=== PATIENT | female | born 1960 | race Caucasian/White ===

== ENCOUNTER → 2017-01-30 | Day surgery (SDC) | payer MEDICARE ==
[~2017-01-30] VITALS: Ht 157.5 cm; Wt 65.0 kg
[~2017-01-30] MED LIST: ACETAMINOPHEN 1000 MG/100 ML 100 ML IV ONE; ACETAMINOPHEN/HYDROcodone 325 MG/5 MG TAB PO PRN; ADDE30TA PO; BUPIVACAINE/EPINEPHRINE 0.5% 50 ML VIAL ONE; CHLORHEXIDINE GLUCONATE 2 % 1 PACK (2 CLOTHS) TOPICAL PRN; HYDROmorphone HCL PF 1 MG/ML VIAL ONE; INSULIN HUMAN REGULAR 1,000 UNITS/10 ML VIAL SQ PRN; KETOROLAC TROMETHAMINE 60 MG/2 ML (IM) VIAL IM PRN; LACTATED RINGER'S 1000 ML IV PRN; LEXA20TA PO; LISI-519 PO; LORA-474 PO; METOPROLOL TARTRATE 25 MG TAB PO PRN; MIDAZOLAM HCL 2 MG/2 ML VIAL ONE; MORPHINE SULFATE 4 MG/ML INJ ONE; ONDANSETRON HCL 4 MG/2 ML VIAL IV PRN; ONDANSETRON HCL 4 MG/2 ML VIAL IV PUSH ONE; POVIDONE IODINE 5% (ANTISEPSIS KIT) 4 APPLICATIONS EACH NARE PRN; PROPOFOL 200 MG/20 ML AMP IV ONE; ROBA750T PO; SODIUM CHLORID 0.9% 500 ML IV PRN; TRIAMCINOLONE ACETONIDE 40 MG/ML VIAL ONE; fentaNYL CITRATE 250 MCG/5 ML AMP ONE
[2017-01-30 12:10] VITALS: PULSE 86
[2017-01-30 12:50] VITALS: BP 122/64; PULSE 81; RESP 16; TEMP 98.6; O2SAT 100
--- NOTE | 2017-01-30 14:08 | MP ---
cc: [facility] DATE OF SURGERY: 01/30/[address] Brett Alford PREOPERATIVE DIAGNOSIS 1. Tear medial meniscus left knee joint. 2. Osteoarthritis left knee joint. 3. Status post old arthroscopic procedure, left knee joint. POSTOPERATIVE DIAGNOSIS 1. Tear medial meniscus left knee joint. 2. Osteoarthritis left knee joint. 3. Status post old arthroscopic procedure, left knee joint. PROCEDURE Arthroscopic synovectomy with chondroplasty of the patella and medial femoral condyle and trimming the medial meniscus. PROCEDURE IN DETAIL The patient was placed on the operating table in the supine position. Adequate general anesthesia was administered by the anesthesiologist. The patient's left knee was prepped and draped in usual sterile fashion. Time-out was called and the patient's name procedure, location were fully confirmed left knee was approached through anteromedial portal as well as lateral portal and a systematic examination of the joint revealed a rather prominent osteochondral lesion of the patella with chondromalacia also noted was a suprapatellar plica with surrounding synovitis. The intercondylar fossa revealed the anterior cruciate ligament frayed but intact. The medial compartment revealed some osteotome arthritis of the medial femoral condyle and a small osteochondral lesion overlying some fraying of the medial meniscus. There also appeared to be suggestion of some absence of the posterior medial corner of the meniscus itself. There did not appear to be any loose bodies throughout the knee joint after thorough exploration. The lateral compartment revealed no lateral meniscus and the condyles were intact. The resector was placed through the anteromedial portal and a trimming of the medial meniscus was carried out accompanied by a chondroplasty of the medial femoral condyle. It was then brought into the suprapatellar pouch and a plica was removed along with the osteochondral lesion which a complete chondroplasty was required utilizing the same instrument. The knee joint was then thoroughly irrigated with lactated Ringer's solution. The instruments were removed and two stab wounds closed with 3-0 nylon. An intra-articular injection of 1 cc or 40 mg of Kenalog along with 0.5% Marcaine with epinephrine. Xeroform gauze was applied over both wounds and a bulky compression dressing applied over this, tourniquet was deflated after 24 minutes. Sponge count, needle count were reported correct x2 and the estimated blood loss was nil. The patient was transferred to the recovery room in stable condition. MD Crys Mckeon /11:44 AM /12:48 PM
== END | disposition home or self-care (01) ==
LOC: PHSDC 09:14
PROVIDERS: ATTEND Orthopaedic Surgery
DX: S83.242A Other tear of medial meniscus, current injury, left knee, initial encounter (principal); M94.262 Chondromalacia, left knee; M17.12 Unilateral primary osteoarthritis, left knee; M65.9 Synovitis and tenosynovitis, unspecified; I10 Essential (primary) hypertension; E78.5 Hyperlipidemia, unspecified
CPT/HCPCS: 01400; 29881; J0131; J1170; J2250; J2270; J2405; J3010; J3301; J7120; E0113

== ENCOUNTER → 2017-08-05 | Outpatient (CLI) | payer MEDICARE ==
[~2017-08-05] MED LIST changes: -ACETAMINOPHEN 1000 MG/100 ML 100 ML IV ONE; -ACETAMINOPHEN/HYDROcodone 325 MG/5 MG TAB PO PRN; -BUPIVACAINE/EPINEPHRINE 0.5% 50 ML VIAL ONE; -CHLORHEXIDINE GLUCONATE 2 % 1 PACK (2 CLOTHS) TOPICAL PRN; +ESCI20TA PO; +ESTR1 PO; +ESTR1TAB PO; +FENT50DI T-DERMAL; +HYDR-3366 PO; +HYDR-3583 PO; -HYDROmorphone HCL PF 1 MG/ML VIAL ONE; -INSULIN HUMAN REGULAR 1,000 UNITS/10 ML VIAL SQ PRN; -KETOROLAC TROMETHAMINE 60 MG/2 ML (IM) VIAL IM PRN; -LACTATED RINGER'S 1000 ML IV PRN; +METH500T3 PO; -METOPROLOL TARTRATE 25 MG TAB PO PRN; -MIDAZOLAM HCL 2 MG/2 ML VIAL ONE; +MORP-44 PO; +MORP1TAB24 PO; -MORPHINE SULFATE 4 MG/ML INJ ONE; +MULT1TAB46 PO; +NEUR300C PO; -ONDANSETRON HCL 4 MG/2 ML VIAL IV PRN; -ONDANSETRON HCL 4 MG/2 ML VIAL IV PUSH ONE; -POVIDONE IODINE 5% (ANTISEPSIS KIT) 4 APPLICATIONS EACH NARE PRN; -PROPOFOL 200 MG/20 ML AMP IV ONE; -SODIUM CHLORID 0.9% 500 ML IV PRN; +THERTAB15 PO; -TRIAMCINOLONE ACETONIDE 40 MG/ML VIAL ONE; +TURM500C7 PO; +VARE1 PO; -fentaNYL CITRATE 250 MCG/5 ML AMP ONE
== END ==
LOC: CPRE 11:36
PROVIDERS: ATTEND Neurological Surgery
DX: Z01.812 Encounter for preprocedural laboratory examination (principal); M43.16 Spondylolisthesis, lumbar region; M51.36 Other intervertebral disc degeneration, lumbar region
CPT/HCPCS: 87640; 87641

== ENCOUNTER 2017-08-11 06:20 | Inpatient (IN) | payer MEDICARE ==
[~2017-08-11] VITALS: Ht 157.5 cm; Wt 63.3 kg
[~2017-08-11 06:20] MED LIST changes: -ESTR1 PO; -HYDR-3366 PO; -HYDR-3583 PO; -LEXA20TA PO; -METH500T3 PO; -MORP1TAB24 PO; -NEUR300C PO; -THERTAB15 PO
[2017-08-11] MEDS ORDERED: VANCOMYCIN HCL 1000 MG VIAL ONE ×2 (06:47→06:48)
[2017-08-11] MEDS ORDERED: THROMBIN (TOPICAL) 5,000 UNIT VIAL ONE (06:47)
[2017-08-11] MEDS ORDERED: BUPIVACAINE/EPINEPHRINE 0.5% PF 30 ML VIAL ONE (06:47)
[2017-08-11] MEDS ORDERED: GELFOAM SIZE 100 ONE (06:47)
[2017-08-11] MEDS ORDERED: LACTATED RINGER'S 1000 ML IV PRN (07:00)
[2017-08-11] MEDS ORDERED: SODIUM CHLORIDE 0.9% 1000 ML IV SCH (07:00)
[2017-08-11] MEDS ORDERED: VANCOMYCIN 1 GM/200 ML PREMIX IV SCH (07:00)
[2017-08-11] MEDS ORDERED: METOPROLOL TARTRATE 25 MG TAB PO PRN (07:00)
[2017-08-11] MEDS ORDERED: POVIDONE IODINE 5% (ANTISEPSIS KIT) 4 APPLICATIONS EACH NARE PRN (07:00)
[2017-08-11] MEDS ORDERED: CHLORHEXIDINE GLUCONATE 2 % 1 PACK (2 CLOTHS) TOPICAL PRN (07:00)
[2017-08-11] MEDS ORDERED: SODIUM CHLORID 0.9% 500 ML IV PRN (07:00)
--- NOTE | 2017-08-11 08:20 | EKG ---
Date Performed: 08/11/2017 Time Performed: 06:57:11 PTAGE: 57 years EKG: Sinus rhythm NORMAL ECG NO PREVIOUS TRACING DOCTOR: Real Freeman Interpretating Date/Time 08/11/2017 08:19:31
[2017-08-11] MEDS ORDERED: ePHEDrine/NS 25 MG/5 ML SYRINGE IV ONE (12:00)
[2017-08-11] MEDS ORDERED: PHENYLEPH/NS 1000 MCG/10 ML SYR IV ONE (12:00)
[2017-08-11] MEDS ORDERED: PROPOFOL 200 MG/20 ML AMP IV ONE (12:00)
[2017-08-11] MEDS ORDERED: ONDANSETRON HCL 4 MG/2 ML VIAL IV ONE (12:00)
[2017-08-11] MEDS ORDERED: NEOSTIGMINE 5 MG/5 ML SYRINGE IV PUSH ONE (12:00)
[2017-08-11] MEDS ORDERED: GLYCOPYRROLATE 1 MG/5 ML SYRINGE IV PUSH ONE (12:00)
[2017-08-11] MEDS ORDERED: NORMOSOL R INJ 1,000 ML IV ONE (12:00)
[2017-08-11] MEDS ORDERED: ROCURONIUM INJ 50 MG/5 ML SYRINGE IV PUSH ONE (12:00)
[2017-08-11] MEDS ORDERED: LIDOCAINE HCL 1% PF 5 ML SYRINGE OTHER ONE (12:00)
[2017-08-11] MEDS ORDERED: ACETAMINOPHEN 1000 MG/100 ML 100 ML IV ONE (12:07)
[2017-08-11] MEDS ORDERED: ACETAMINOPHEN 325 MG TAB PO PRN (13:45)
[2017-08-11] MEDS ORDERED: SENNOSIDES 8.6 MG TAB PO PRN (13:45)
[2017-08-11] MEDS ORDERED: ONDANSETRON HCL 4 MG/2 ML VIAL IV PUSH PRN (13:45)
[2017-08-11] MEDS ORDERED: RESP: ALBUTEROL 2.5 MG/3 ML NEB (PRN) NEB (13:45)
[2017-08-11] MEDS ORDERED: HYDROmorphone HCL PF 2 MG/ML VIAL IV PUSH PRN (13:45)
[2017-08-11] MEDS ORDERED: CALCIUM GLUCONATE INJ 1 GM in SODIUM CHLORIDE 0.9% INJ 100 ML IV PRN (13:45)
[2017-08-11] MEDS ORDERED: SODIUM CHLORIDE 0.9% FLUSH 10 ML FLUSH IV FLUSH PRN (13:45)
[2017-08-11] MEDS ORDERED: MENTHOL LOZENGE BUCCAL PRN (13:45)
[2017-08-11] MEDS ORDERED: BISACODYL 10 MG SUPP RECTAL PRN (13:45)
[2017-08-11] MEDS ORDERED: POTASSIUM CHLOR 20 MEQ PREMIX 100 ML IV PRN (13:45)
[2017-08-11] MEDS ORDERED: ALUMINUM/MAGNESIUM/SIMETH 30 ML CUP PO PRN (13:45)
[2017-08-11] MEDS ORDERED: cloNIDine HCL 0.1 MG TAB PO PRN (13:45)
[2017-08-11] MEDS ORDERED: MAGNESIUM SULFATE INJ 2 GM in SODIUM CHLORIDE 0.9% INJ 100 ML IV PRN (13:45)
[2017-08-11] MEDS ORDERED: PROMETHAZINE INJ 25 MG/ML VIAL IM PRN (13:45)
[2017-08-11] MEDS ORDERED: *HYDROmorphone PF 0.5 MG/0.5 ML PERIprocedure ONLY ONE ×3 (13:48→15:01)
--- NOTE | 2017-08-11 13:50 | PD.OP ---
Operative Report Date of Surgery: Aug 11, 2017 Preoperative Diagnosis: Severe L3-4 and L4-5 degenerative disc disease with disc herniation and facet hypertrophy and associated spinal and foraminal stenosis; intractable low back pain with radiculopathy and neurogenic claudication Postoperative Diagnosis: Same Procedure: Lumbar L3-4 and L4-5 transforaminal interbody fusion; lumbar L3, L4 and L5 decompressive laminectomy with facetectomy and discectomy; L3-5 pedicle screw fixation; L3-4 and L4-5 interbody cage placement; microsurgical technique Anesthesia: General endotracheal by Maria C kellogg Surgeon: Jerardo Honeycutt MD Computer Tester(s): Elva Reilly Operation and Findings: Following initiation of general endotracheal anesthesia, the patient had a Galvan catheter placed along with sequential compression devices. A gram of vancomycin was administered intravenously and he was turned in a prone position on a Pete frame, on a Rafael table, and all pressure points adequately padded. The lumbosacral region was then prepped with Chloraprep and sterilely draped with Ioban along the usual sterile draping. A right paraspinal skin incision was then made extending from the L3-L5 levels after infiltrating the skin with 0.5% Marcaine with epinephrine solution extending down through the fascia. The muscle fibers were split using avascular fatty plane and detached from the underlying facets, transverse process and lateral portion of lamina on the right side and a self-retaining retractor used for exposure. Intraoperative fluoroscopy was also used for level of confirmation along with microscope magnification for further dissection. There was significant facet and ligamentum flavum hypertrophy noted at the L3-4 and L4-5 levels. Right L3-4 and L4-5 facet was resected with a drill bit along with the lamina and there was severe foraminal and lateral recess stenosis from hypertrophied ligamentum flavum and facet which were decompressed bilaterally through the unilateral approach. There was significant disc height collapse along with disc protrusion also leading to the foraminal stenosis at both levels. Epidural hemostasis was achieved with bipolar cautery and Gelfoam with thrombin. Subsequently entered into the disc space at the L3-4 and L4-5 level with a #15 blade and zara were used for discectomy. I then placed PEEK cages packed with local autograft bone and more local autograft bone was packed adjacent to the cages in both interspaces for added interbody fusion. With placement of the cages, I was able to distract the interspaces and opened up the foramen further bilaterally. Subsequently in order to facilitate the fusion and provide stabilization, pedicle screw fixation was undertaken using [place] spine screws on entry point at the right L3, L4, and L5 levels at the junction of the transverse process and facet. Subsequently using AP and lateral fluoroscopy tap and screw placement. The screws were then connected with a rojas and locked in place with caps. The construct appeared very secure at this point. The area was then copiously irrigated with Vancomycin solution and powder. The retractors were removed and the bipolar cautery used for hemostasis. The muscle fascia was then approximated using 2-0 Vicryl interrupted stitches and then 3-0 Vicryl subcuticular stitches also placed in interrupted fashion. The final skin closure was completed with Mastisol and Steri-Strips. A sterile dressing was then applied. The patient then turned in supine position, extubated and taken to recovery room. There were no intraoperative complications. All sponge and needle counts were correct at the end of procedure. Estimated blood loss about 100 ml. Jerardo Honeycutt MD Aug 11, 2017 13:50
[2017-08-11] MEDS: NS + KCL 20 MEQ INJ 1,000 ML IV SCH (14:00)
[2017-08-11] MEDS ORDERED: MIDAZOLAM HCL 2 MG/2 ML VIAL ONE (14:00)
[2017-08-11] MEDS ORDERED: MORPHINE SULFATE 4 MG/ML INJ ONE (14:00)
--- NOTE | 2017-08-11 14:26 | RADRPT ---
EXAM DATE/TIME: 08/11/2017 09:04 [facility] COMPARISON: No previous studies available for comparison. INDICATIONS : Post-op L3-L4 and L4-L5 posterior lumbar fusion. MEDICAL HISTORY : None. SURGICAL HISTORY : None. ENCOUNTER: Initial ACUITY: 1 day PAIN SCORE: Non-responsive. LOCATION: Lumbar spine. FINDINGS: Two view , intraoperative limited view of the lumbosacral junction was performed. There is 3 level ri ght-sided transpedicular fixation from L3-L5 with intervening intervertebral disc prosthesis. Hardwar e all appears to be intact. Minimal grade 1 anterolisthesis of L3 on 4, grade 1 retrolisthesis L4 on 5 and a grade 1 anterolisthesis of L5 on S1. I suspect at least a unilateral pars fracture at the L5 level. CONCLUSION: 1. Unilateral 3 level transpedicular fixation rightward as detailed above. 2. Possible pars fracture at L5 with high grade one anterolisthesis of L5 on S1 Sumeet Mendoza MD on August 11, 2017 at 14:20 Board Certified Radiologist. This report was verified electronically.
--- NOTE | 2017-08-11 14:27 | RADRPT ---
EXAM DATE/TIME: 08/11/2017 09:04 [facility] COMPARISON: No previous studies available for comparison. INDICATIONS : L3-L4 and L4-L5 posterior lumbar fusion. Level localization. MEDICAL HISTORY : None. SURGICAL HISTORY : None. ENCOUNTER: Initial ACUITY: 1 day PAIN SCORE: Non-responsive. LOCATION: Lumbar spine. FINDINGS: Single crosstable fluoroscopic lateral view of the lower lumbar spine demonstrates radiopaque markers projecting at the L4 and L5 level presuming 5 lumbar-type vertebral bodies. There is grade one antra l listhesis of L5 on S1. Vertebral body heights are intact. CONCLUSION: 1. Radiopaque markers at the L4 and L5 level, as above. Ethan Harrison MD on August 11, 2017 at 14:23 Board Certified Radiologist. This report was verified electronically.
[2017-08-11] MEDS ORDERED: DIMETHICONE/OXYBENZONE/PADMIATE LIP BALM 4.25 GM TOPICAL ONE (14:33)
[2017-08-11] MEDS ORDERED: DO NOT ADM ANY ANTICOAGULANT DRUGS PRN (14:45)
[2017-08-11 14:52] LABS: AUTOMATED NEUTROPHIL # 7.1 TH/MM3 (1.8-7.7); BASOPHIL % 0.3 % (0.0-2.0); EOSINOPHIL % 0.5 % (0.0-4.0); HEMATOCRIT 29.9 % (35.0-46.0); HEMOGLOBIN 10.4 GM/DL (11.6-15.3); LYMPH % 16.3 % (9.0-44.0); LYMPHOCYTE # 1.5 TH/MM3 (1.0-4.8); MEAN CELL VOLUME 93.2 FL (80.0-100.0); MEAN CORPUSCULAR HEMOGLOBIN 32.4 PG (27.0-34.0); MEAN CORPUSCULAR HGB CONC 34.7 % (32.0-36.0); MEAN PLATELET VOLUME 7.8 FL (7.0-11.0); MONOCYTE # 0.6 TH/MM3 (0-0.9); NEUT % 76.9 % (16.0-70.0); PLATELET COUNT 244 TH/MM3 (150-450); RED BLOOD COUNT 3.21 MIL/MM3 (4.00-5.30); RED CELL DISTRIBUTION WIDTH 12.5 % (11.6-17.2); WHITE BLOOD COUNT 9.3 TH/MM3 (4.0-11.0)
--- NOTE | 2017-08-11 14:59 | RADRPT ---
EXAM DATE/TIME: 08/11/2017 14:09 [facility] COMPARISON: No previous studies available for comparison. INDICATIONS : Central line placement. MEDICAL HISTORY : Unobtainable. SURGICAL HISTORY : Unobtainable. ENCOUNTER: Initial ACUITY: 1 day PAIN SCORE: 0/10 LOCATION: Bilateral chest FINDINGS: A single view of the chest demonstrates the lungs to be symmetrically aerated without evidence of mas s, infiltrate or effusion. The cardiomediastinal contours are unremarkable. Osseous structures are intact. There is a left subclavian central line. Tip is in the SVC. No pneumothorax. Surgical spinal fusion plate. CONCLUSION: Left subclavian central line in good position without pneumothorax. Clear lungs. Moisés Ojeda Jr., MD on August 11, 2017 at 14:56 Board Certified Radiologist. This report was verified electronically.
[2017-08-11] MEDS ORDERED: fentaNYL 50 MCG/HR PATCH T-DERMAL SCH (15:00)
[2017-08-11 15:24] LABS: BICARBONATE 27.1 MEQ/L (21.0-32.0); CALCIUM 7.7 MG/DL (8.5-10.1); CREATININE 0.73 MG/DL (0.50-1.00)
[2017-08-11] MEDS ORDERED: ceFAZolin INJ 1,000 MG VIAL ONE (15:24)
[2017-08-11 16:00] VITALS: BP 123/58; PULSE 83; RESP 19; TEMP 98.8; O2SAT 99
[2017-08-11] MEDS: HYDROmorphone HCL PF 0.5 MG/0.5 ML SYRINGE IV PRN ×3 (16:41→20:27)
[2017-08-11] MEDS: VARENICLINE 1 MG TAB PO SCH (18:00)
[2017-08-11] MEDS: METHOCARBAMOL 500 MG TAB PO SCH (18:00)
[2017-08-11] MEDS: MORPHINE SULFATE 30 MG CONTROLLED RELEASE TAB PO SCH (18:18)
[2017-08-11 19:45] VITALS: BP 140/61; PULSE 85; RESP 16; TEMP 99.8; O2SAT 97
[2017-08-11] MEDS ORDERED: diphenhydrAMINE HCL 25 MG CAP PO PRN (20:30)
[2017-08-11] MEDS ORDERED: NALOXONE HCL 0.4 MG/ML AMP IV PUSH PRN (20:30)
[2017-08-11] MEDS: LORazepam 1 MG TAB PO PRN (20:33)
[2017-08-11] MEDS: DEXTROAMPHETAMINE/AMPHETAMINE 30 MG TAB PO SCH (21:00)
[2017-08-11] MEDS: SODIUM CHLORIDE 0.9% FLUSH 10 ML FLUSH IV FLUSH SCH (21:00)
[2017-08-11] MEDS: ZOLPIDEM TARTRATE 5 MG TAB PO PRN (21:34)
[2017-08-11] MEDS: DOCUSATE SODIUM 50 MG/SENNA 8.6 MG TAB PO SCH (21:34)
[2017-08-11] MEDS: HYDROmorphone HCL PCA 6 MG/30 ML IV SCH (22:02)
[2017-08-11 22:58] VITALS: PULSE 109
[2017-08-11 23:24] VITALS: PULSE 93
[2017-08-12] VITALS (8 sets, daily range): BP systolic 114–125; BP diastolic 57–66; PULSE 87–107; RESP 16–18; TEMP 98.3–100.1; O2SAT 94–100
[2017-08-12] MEDS: HYDROmorphone HCL PCA 6 MG/30 ML IV SCH ×7 (02:22→23:53)
[2017-08-12] MEDS: MORPHINE SULFATE 30 MG CONTROLLED RELEASE TAB PO SCH ×2 (04:47→17:14)
[2017-08-12] MEDS: PCA - TOTAL MG DILAUDID DELIVERED PER SHIFT OTHER SCH ×3 (04:49→22:09)
[2017-08-12] MEDS: NS + KCL 20 MEQ INJ 1,000 ML IV SCH (07:36)
[2017-08-12] MEDS: LISINOPRIL 5 MG TAB PO SCH (07:38)
[2017-08-12] MEDS: PANTOPRAZOLE SOD 40 MG DELAYED RELEASE TAB PO SCH (07:38)
[2017-08-12] MEDS: DEXTROAMPHETAMINE/AMPHETAMINE 30 MG TAB PO SCH ×2 (07:38→22:08)
[2017-08-12] MEDS: METHOCARBAMOL 500 MG TAB PO SCH ×3 (07:38→17:14)
[2017-08-12] MEDS: SODIUM CHLORIDE 0.9% FLUSH 10 ML FLUSH IV FLUSH SCH ×2 (07:38→22:09)
[2017-08-12] MEDS: ESTRADIOL 1 MG TAB PO SCH (07:39)
[2017-08-12] MEDS: ESCITALOPRAM OXALATE 20 MG TAB PO SCH (07:39)
[2017-08-12] MEDS: MULTIVITAMIN TAB PO SCH (07:39)
[2017-08-12] MEDS: DOCUSATE SODIUM 50 MG/SENNA 8.6 MG TAB PO SCH ×2 (07:39→22:01)
[2017-08-12] MEDS: VARENICLINE 1 MG TAB PO SCH ×2 (07:39→17:14)
[2017-08-12] MEDS ORDERED: TURMERIC ROOT EXTRACT PO SCH (09:00)
--- NOTE | 2017-08-12 09:01 | EKG ---
Date Performed: 08/11/2017 Time Performed: 20:40:23 PTAGE: 57 years EKG: Sinus rhythm NORMAL ECG PREVIOUS TRACING : 08/11/2017 06.57 DOCTOR: Singh Ashby Interpretating Date/Time 08/12/2017 09:00:41
--- NOTE | 2017-08-12 10:28 | HHI.NSPN ---
(Riky Leal) History Chief Complaint: Incisional back pain. (Riky Leal) Interval History 08/12/17: Pt s/p L4/5 and l5/S1 TLIF with cage and pedicle screw fixation. She complains of incisional and back pain but improved since sitting up in chair. She was able to ambulate short distance today to RN station. She state her leg was sore but no radiculopathy in LEs. (Riky Leal) Review of Systems General: Negative for: fever, chills, insomnia Respiratory: Negative for: shortness of breath, cough, sputum Cardiovascular: Negative for: chest pain Gastrointestinal: Negative for: nausea, vomitting, diarrhea, constipation ( Riky Lela) Exam Results Vital Signs Date Time Temp Pulse Resp B/P (MAP) Pulse Ox O2 Delivery O2 Flow Rate FiO2 08/12/17 09:17 16 08/12/17 07:52 99.7 96 122/58 (79) 97 08/11/17 15:00 Nasal Cannula 3 Intake and Output 08/12/17 08/12/17 08/13/17 08:00 16:00 00:00 Intake Total 720 ml Output Total 1800 ml Balance -1080 ml (Riky Leal) Physical Examination General: Pt awake and alert. Sitting up in chair in NAD. Resp: CTA bilaterally Heart: NSR no murmurs Abd: Soft positive bs Skin: No cyanosis or erythema Muscle: Moves LEs with good strength some limitation secondary to pain. Neuro: Pt awake and alert. Sitting up in chair. Follows commands well. Speech clear and appropriate. Sensation grossly intact. (Riky Leal) Lab, Micro, Other Results Laboratory Tests Test 08/11/17 14:28 08/11/17 22:45 White Blood Count 9.3 TH/MM3 Red Blood Count 3.21 MIL/MM3 Hemoglobin 10.4 GM/DL Hematocrit 29.9 % Mean Corpuscular Volume 93.2 FL Mean Corpuscular Hemoglobin 32.4 PG Mean Corpuscular Hemoglobin Concent 34.7 % Red Cell Distribution Width 12.5 % Platelet Count 244 TH/MM3 Mean Platelet Volume 7.8 FL Neutrophils (%) (Auto) 76.9 % Lymphocytes (%) (Auto) 16.3 % Monocytes (%) (Auto) 6.0 % Eosinophils (%) (Auto) 0.5 % Basophils (%) (Auto) 0.3 % Neutrophils # (Auto) 7.1 TH/MM3 Lymphocytes # (Auto) 1.5 TH/MM3 Monocytes # (Auto) 0.6 TH/MM3 Eosinophils # (Auto) 0.0 TH/MM3 Basophils # (Auto) 0.0 TH/MM3 CBC Comment DIFF FINAL Differential Comment Blood Urea Nitrogen 15 MG/DL Creatinine 0.73 MG/DL Random Glucose 127 MG/DL Calcium Level 7.7 MG/DL Sodium Level 140 MEQ/L Potassium Level 3.6 MEQ/L Chloride Level 104 MEQ/L Carbon Dioxide Level 27.1 MEQ/L Anion Gap 9 MEQ/L Estimat Glomerular Filtration Rate 83 ML/MIN Troponin I 0.03 NG/ML B-Type Natriuretic Peptide 115 PG/ML (Riky Leal) Medical Decision Making Impression and Plan A: 57 y/o FM s/p L4/L5 and L5/S1 TLIF with cage and pedicle screw fixation. P: Continue to monitor Continue with pain control Rehab efforts. D/C Cole (Riky Leal) Attending Statement The exam, history, and the medical decision-making described in the above note were completed with the assistance of the mid-level provider. I reviewed and agree with the findings presented. I attest that I had a yoem-if-foae encounter with the patient on the same day, and personally performed and documented my assessment and findings in the medical record. (Jerardo Honeycutt MD) Riky Leal Aug 12, 2017 10:28 Jerardo Honeycutt MD Aug 12, 2017 17:35
--- NOTE | 2017-08-12 10:35 | PD.CONS ---
HPI Service [facility] Consult Requested By DR TONY TAVAREZ MD Reason for Consult MEDICAL MANAGEMENT Primary Care Physician Non-Staff Diagnoses: History of Present Illness PATIENT IS A 57 YEAR OLD FEMALE WHO UNDERWENT BACK SURGERY WITH DR TAVAREZ YESTERDAY. WE HAVE BEEN ASKED TO CONSULT REGARDING MEDICAL MANAGEMENT. I HAVE SEEN AND EXAMINED THE PATIENT WITH RN PRESENT HAS HISTORY OF CERVICAL SURGERY AND ANXIETY AND DEPRESSION PATIENT IS S/P L4/5 and L5/S1 TLIF with cage and pedicle screw fixation. Review of Systems Constitutional: COMPLAINS OF: Fatigue, DENIES: Diaphoretic episodes, Fever, Weight gain, Weight loss, Chills, Dizziness, Change in appetite, Night Sweats Endocrine: DENIES: Abnorml menstrual pattern, Heat/cold intolerance, Polydipsia , Polyuria, Polyphagia Eyes: DENIES: Blurred vision, Diplopia, Eye inflammation, Eye pain, Vision loss , Photosensitivity, Double Vision Ears, nose, mouth, throat: DENIES: Tinnitus, Hearing loss, Vertigo, Nasal discharge, Oral lesions, Throat pain, Hoarseness, Ear Pain, Running Nose, Epistaxis, Sinus Pain, Toothache, Odynophagia Respiratory: DENIES: Apneas, Cough, Snoring, Wheezing, Hemoptysis, Sputum production, Shortness of breath Cardiovascular: DENIES: Chest pain, Palpitations, Syncope, Dyspnea on Exertion , PND, Lower Extremity Edema, Orthopnea, Claudication Gastrointestinal: DENIES: Abdominal pain, Black stools, Bloody stools, Constipation, Diarrhea, Nausea, Vomiting, Difficulty Swallowing, Anorexia Genitourinary: DENIES: Abnormal vaginal bleeding, Dysmenorrhea, Dyspareunia, Sexual dysfunction, Urinary frequency, Urinary incontinence, Urgency, Hematuria , Dysuria, Nocturia, Vaginal discharge Musculoskeletal: COMPLAINS OF: Joint pain, Back pain, DENIES: Muscle aches, Stiffness, Joint Swelling, Neck pain Integumentary: DENIES: Abnormal pigmentation, Pruritus, Rash, Nail changes, Breast masses, Breast skin changes, Nipple discharge Hematologic/lymphatic: DENIES: Bruising, Lymphadenopathy Immunologic/allergic: DENIES: Eczema, Urticaria Neurologic: DENIES: Abnormal gait, Headache, Localized weakness, Paresthesias, Seizures, Speech Problems, Tremor, Poor Balance Psychiatric: DENIES: Anxiety, Confusion, Mood changes, Depression, Hallucinations, Agitation, Suicidal Ideation, Homicidal Ideation, Delusions Except as stated in HPI: all other systems reviewed are Neg Past Family Social History Allergies: Coded Allergies: No Known Allergies (Unverified Allergy, Unknown, 08/11/17) Past Medical History Anxiety and depression Chronic constipation Spinal stenosis degenerative disc disease Hypertension Kidney stones Osteoporosis Osteoarthritis Past Surgical History Cervical surgery 3 Bilateral oophorectomy Left knee meniscus repair Bilateral carpal tunnel repair Right knee arthroscopic surgery Necrotizing fasciitis status post carpal tunnel surgery Reported Medications Reported Meds & Active Scripts Active Reported Chantix (Varenicline) 1 Mg Tab 1 Mg PO BIDPC Estradiol 1 Mg Tab 1 Mg PO DAILY Turmeric (Turmeric Root Extract) 500 Mg Capsule 1 Cap PO DAILY Multi Vitamin Daily (Multiple Vitamin) 1 Tab Tab 1 Tab PO DAILY Fentanyl Patch 72 HR (Fentanyl) 50 Mcg/Hr Patch 50 Mcg T-DERMAL Q72H Remove old patch when new one placed. Morphabond ER 12 HR (Morphine Sulfate) 30 Mg Tab 30 Mg PO Q12H Escitalopram (Escitalopram Oxalate) 20 Mg Tab 20 Mg PO DAILY Lisinopril 5 Mg Tab 5 Mg PO DAILY Ativan (Lorazepam) 1 Mg Tab 1 Mg PO Q8H PRN Robaxin (Methocarbamol) 750 Mg Tab 750 Mg PO TID Adderall (Amphetamine-Dextroamphetamine) 30 Mg Tab 30 Mg PO BID Avoid late evening doses. Space doses at least 4 to 6 hours if more than once/day dosing. Active Ordered Medications Current Medications Vancomycin HCl (Vancomycin Inj) 1,000 mg STK-MED ONCE .ROUTE Last administered on 08/11/17 09:50; Start 08/11/17 at 06:47; Stop 08/11/17 at 06:48; Status DC Thrombin (Thrombin Top Soln) 10,000 units STK-MED ONCE .ROUTE Last administered on 08/11/17 09:50; Start 08/11/17 at 06:47; Stop 08/11/17 at 06:48 ; Status DC Bupivacaine HCl/ Epinephrine Bitart (Sensorcaine-Epinephrine Pf 0.5% Inj) 30 ml STK-MED ONCE .ROUTE Last administered on 08/11/17 09:43; Start 08/11/17 at 06: 47; Stop 08/11/17 at 06:48; Status DC Gelatin (Gelfoam 100 Top) 1 foam STK-MED ONCE .ROUTE Last administered on 4/24/ 18at 09:50; Start 08/11/17 at 06:47; Stop 08/11/17 at 06:48; Status DC Vancomycin HCl (Vancomycin Inj) 1,000 mg STK-MED ONCE .ROUTE ; Start 08/11/17 at 06:48; Stop 08/11/17 at 06:49; Status DC Lactated Ringer's 1,000 ml @ 30 mls/hr Q24H PRN IV SEE LABEL COMMENTS; Start at 07:00; Stop 08/11/17 at 14:43; Status DC Sodium Chloride 500 ml @ 30 mls/hr [id number] PRN IV SEE LABEL COMMENTS; Start at 07:00; Stop 08/11/17 at 14:43; Status DC Metoprolol Tartrate (Lopressor) 25 mg GREEN ENERGY MARKETING ANALYST PRN PO SEE LABEL COMMENTS; Start 08/11/17 at 07:00; Stop 08/14/17 at 06:59 Povidone Iodine (Betadine 5% Antisepsis Kit) 1 applic GREEN ENERGY MARKETING ANALYST PRN EACH NARE SEE LABEL COMMENTS Last administered on 08/11/17at 08:05; Start 08/11/17 at 07:00 ; Stop 08/14/17 at 06:59 Chlorhexidine Gluconate (Chlorhexidine 2% Cloth) 3 pack GREEN ENERGY MARKETING ANALYST PRN TOPICAL SEE LABEL COMMENTS Last administered on 08/11/17at 08:05; Start 08/11/17 at 07:00 ; Stop 08/14/17 at 06:59 Vancomycin/Sodium Chloride 200 ml @ 200 mls/hr GREEN ENERGY MARKETING ANALYST IV Last administered on 08/11/17at 08:37; Start 08/11/17 at 07:00; Stop 08/12/17 at 06:59; Status DC Sodium Chloride 1,000 ml @ 30 mls/hr Q24H IV ; Start 08/11/17 at 07:00; Stop at 14:43; Status DC Acetaminophen 100 ml @ As Directed STK-MED ONCE IV ; Start 08/11/17 at 12:07; Stop 08/11/17 at 12:08; Status DC Amphetamine/ Dextroamphetamine (Adderall) 30 mg BID PO Last administered on at 07:38; Start 08/11/17 at 21:00 Escitalopram Oxalate (Lexapro) 20 mg DAILY PO Last administered on 08/12/17 07 :39; Start 08/12/17 at 09:00 Estradiol (Estradiol) 1 mg DAILY PO Last administered on 08/12/17 07:39; Start 08/12/17 at 09:00 Lisinopril (Prinivil) 5 mg DAILY PO Last administered on 08/12/17 07:38; Start 08/12/17 at 09:00 Lorazepam (Ativan) 1 mg Q8H PRN PO ANXIETY AND/OR AGITATION Last administered on 08/11/17 20:33; Start 08/11/17 at 13:45 Varenicline (Chantix) 1 mg BIDPC PO Last administered on 08/12/17 07:39; Start 08/11/17 at 18:00 Methocarbamol (Robaxin) 750 mg TID PO Last administered on 08/12/17 07:38; Start 08/11/17 at 18:00 Morphine Sulfate (Oramorph Sr) 30 mg Q12H PO Last administered on 08/12/17 04: 47; Start 08/11/17 at 17:00 Multivitamins (Theragran) 1 tab DAILY PO Last administered on 08/12/17 07:39; Start 08/12/17 at 09:00 Non-Formulary Medication 1 cap DAILY PO ; Start 08/12/17 at 09:00; Stop at 09:00; Status DC Fentanyl (Duragesic 50 Mcg Patch.72 Hr) 1 patch Q72H T-DERMAL Last administered on 08/11/17 14:45; Start 08/11/17 at 15:00 Potassium Chloride/Sodium Chloride 1,000 ml @ 30 mls/hr Q24H IV Last administered on 08/12/17 07:36; Start 08/11/17 at 13:42 Sodium Chloride (NS Flush) 2 ml UNSCH PRN IV FLUSH FLUSH AFTER USING IV ACCESS ; Start 08/11/17 at 13:45 Sodium Chloride (NS Flush) 2 ml BID IV FLUSH Last administered on 08/12/17 07: 38; Start 08/11/17 at 21:00 Cefazolin Sodium 1000 mg/Sodium Chloride 100 ml @ 200 mls/hr Q8H IV Last administered on 08/12/17 07:37; Start 08/11/17 at 16:00; Stop 08/12/17 at 08:29 ; Status DC Al Hydrox/Mg Hydrox/Simethicone (Mag-Al Plus Susp Liq) 30 ml Q6H PRN PO DYSPEPSIA; Start 08/11/17 at 13:45 Pantoprazole Sodium (Protonix) 40 mg DAILY PO Last administered on 08/12/17at 07 :38; Start 08/12/17 at 09:00 Ondansetron HCl (Zofran Inj) 4 mg Q6H PRN IV PUSH NAUSEA OR VOMITING; Start at 13:45 Promethazine HCl (Phenergan Inj) 25 mg Q4H PRN IM NAUSEA OR VOMITING; Start at 13:45 Calcium Gluconate 1 gm/Sodium Chloride 110 ml @ 110 mls/hr UNSCH PRN IV SEE LABEL COMMENTS; Start 08/11/17 at 13:45 Potassium Chloride 100 ml @ 50 mls/hr UNSCH PRN IV POTASSIUM LESS THAN 4; Start 08/11/17 at 13:45 Magnesium Sulfate 2 gm/Sodium Chloride 104 ml @ 100 mls/hr UNSCH PRN IV MAGNESIUM LESS THAN 2; Start 08/11/17 at 13:45 Acetaminophen/ Hydrocodone Bitart ([place] 10-325 Mg) 1 tab Q4H PRN PO PAIN SCALE 1 TO 5; Start 08/11/17 at 13:45 Acetaminophen/ Hydrocodone Bitart ([place] 10-325 Mg) 2 tab Q4H PRN PO PAIN SCALE 6 TO 10; Start 08/11/17 at 13:45 Clonidine (Catapres) 0.1 mg Q6H PRN PO SYS BP GREATER THAN 170 MMHG; Start at 13:45 Acetaminophen (Tylenol) 650 mg Q4H PRN PO TEMPERATURE > 101.5 F; Start at 13:45 Menthol (Bradley Breonna) 1 lozenge UNSCH PRN BUCCAL SORE THROAT; Start 08/11/17 at 13:45 Zolpidem Tartrate (Ambien) 5 mg HS PRN PO INSOMNIA Last administered on at 21:34; Start 08/11/17 at 13:45 Albuterol Sulfate (Albuterol Neb) 2.5 mg Q4HR NEB PRN NEB WHEEZING; Start 08/11 at 13:45 Senna/Docusate Sodium (Anny-Colace) 1 tab BID PO Last administered on at 07:39; Start 08/11/17 at 21:00 Magnesium Hydroxide (Milk Of Magnesia Liq) 30 ml Q12H PRN PO Mild constipation ; Start 08/11/17 at 13:45 Sennosides (Senokot) 17.2 mg Q12H PRN PO Moderate constipation; Start 08/11/17 at 13:45 Bisacodyl (Dulcolax Supp) 10 mg DAILY PRN RECTAL SEVERE CONSITIPATION; Start at 13:45 Lactulose (Lactulose Liq) 30 ml DAILY PRN PO SEVERE CONSITIPATION; Start at 13:45 Hydromorphone HCl (Dilaudid Pf Inj) 2 mg Q2H PRN IV PUSH breakthrough pain>6; Start 08/11/17 at 13:45; Stop 08/11/17 at 13:52; Status DC Hydromorphone HCl (*DILAUDID PF INJ PERIprocedure ONLY) 0.5 mg STK-MED ONCE .ROUTE Last administered on 08/11/17at 13:48; Start 08/11/17 at 13:48; Stop at 13:49; Status DC Hydromorphone HCl (Dilaudid Pf Inj) 1 mg Q2H PRN IV breakthrough pain>6 Last administered on 08/11/17at 20:27; Start 08/11/17 at 14:45; Stop 08/11/17 at 20:32 ; Status DC Hydromorphone HCl (*DILAUDID PF INJ PERIprocedure ONLY) 0.5 mg STK-MED ONCE .ROUTE Last administered on 08/11/17at 13:55; Start 08/11/17 at 13:55; Stop at 13:56; Status DC Fentanyl Citrate (fentaNYL INJ) 500 mcg STK-MED ONCE .ROUTE ; Start 08/11/17 at 14:00; Stop 08/11/17 at 14:01; Status DC Midazolam HCl (Versed Inj) 2 mg STK-MED ONCE .ROUTE ; Start 08/11/17 at 14:00; Stop 08/11/17 at 14:01; Status DC Morphine Sulfate (Morphine Inj) 8 mg STK-MED ONCE .ROUTE ; Start 08/11/17 at 14: 00; Stop 08/11/17 at 14:01; Status DC Oxybenzone/ Padimate O/ Dimethicone (Blistex Lip Ortley) 4.25 applic STK-MED ONCE TOPICAL Last administered on 08/11/17at 14:33; Start 08/11/17 at 14:33; Stop at 14:34; Status DC Miscellaneous Information ALL NURSING DEPARTME... UNSCH PRN .XX SEE LABEL COMMENTS; Start 08/11/17 at 14:45; Stop 08/12/17 at 14:44 Hydromorphone HCl (*DILAUDID PF INJ PERIprocedure ONLY) 0.5 mg STK-MED ONCE .ROUTE Last administered on 08/11/17at 15:01; Start 08/11/17 at 15:01; Stop at 15:02; Status DC Cefazolin Sodium (Ancef Inj) 1,000 mg STK-MED ONCE .ROUTE Last administered on 08/11/17at 15:24; Start 08/11/17 at 15:24; Stop 08/11/17 at 15:25; Status DC Naloxone HCl (Narcan Inj) 0.4 mg UNSCH PRN IV PUSH RESPIRATORY RATE LESS THAN 10; Start 08/11/17 at 20:30 Diphenhydramine HCl (Benadryl) 25 mg Q6H PRN PO ITCHING; Start 08/11/17 at 20: 30 Hydromorphone HCl (Dilaudid KENNEL OPERATOR Inj) 6 mg UNSCH IV Last administered on at 08:45; Start 08/11/17 at 20:30 KENNEL OPERATOR Dosage Infused (Pha) 1 Q8HR OTHER Last administered on 08/12/17at 04:49; Start 08/11/17 at 22:00 Family History Osteoarthritis and hypertension Social History History of tobacco abuse Denies alcohol use Denies illicits Physical Exam Vital Signs Vital Signs Date Time Temp Pulse Resp B/P (MAP) Pulse Ox O2 Delivery O2 Flow Rate FiO2 08/12/17 09:17 16 08/12/17 08:45 18 08/12/17 07:52 99.7 96 18 122/58 (79) 97 08/12/17 05:36 15 08/12/17 04:49 16 08/12/17 04:17 102 08/12/17 04:05 98.6 101 17 125/66 (85) 98 08/12/17 00:30 98.3 97 16 117/59 (78) 98 08/11/17 23:24 93 08/11/17 22:58 109 08/11/17 22:02 15 08/11/17 19:45 99.8 85 16 140/61 (87) 97 08/11/17 16:00 98.8 83 19 123/58 (79) 99 08/11/17 15:00 97.8 77 15 121/58 (79) 99 Nasal Cannula 3 08/11/17 14:30 88 15 119/56 (77) 99 Nasal Cannula 3 08/11/17 14:15 84 15 119/58 (78) 99 Nasal Cannula 3 08/11/17 14:00 88 15 112/59 (76) 93 Nasal Cannula 3 08/11/17 13:45 97.7 93 15 109/57 (74) 94 Nasal Cannula 3 Physical Exam GENERAL: This is a well-nourished, well-developed patient, in no apparent distress. SKIN: No rashes, ecchymoses or lesions. Cool and dry. HEAD: Atraumatic. Normocephalic. No temporal or scalp tenderness. EYES: Pupils equal round and reactive. Extraocular motions intact. No scleral icterus. No injection or drainage. ENT: Nose without bleeding, purulent drainage or septal hematoma. Throat without erythema, tonsillar hypertrophy or exudate. Uvula midline. Airway patent. NECK: Trachea midline. No JVD or lymphadenopathy. Supple, nontender, no meningeal signs. CARDIOVASCULAR: Regular rate and rhythm without murmurs, gallops, or rubs. S1- S2 no S3 or S4 RESPIRATORY: Clear to auscultation. Breath sounds equal bilaterally. No wheezes , rales, or rhonchi. GASTROINTESTINAL: Abdomen soft, non-tender, nondistended. No hepato-splenomegaly , or palpable masses. No guarding. MUSCULOSKELETAL: Extremities without clubbing, cyanosis, or edema. No joint tenderness, effusion, or edema noted. No calf tenderness. Negative Homans sign bilaterally. NEUROLOGICAL: Awake and alert. Cranial nerves II through XII intact. Motor and sensory grossly within normal limits. Five out of 5 muscle strength in all muscle groups. Normal speech. Has back brace in place Insight and judgment is good Mood behaviors appropriate Laboratory Laboratory Tests Test 08/11/17 14:28 08/11/17 22:45 White Blood Count 9.3 Red Blood Count 3.21 Hemoglobin 10.4 Hematocrit 29.9 Mean Corpuscular Volume 93.2 Mean Corpuscular Hemoglobin 32.4 Mean Corpuscular Hemoglobin Concent 34.7 Red Cell Distribution Width 12.5 Platelet Count 244 Mean Platelet Volume 7.8 Neutrophils (%) (Auto) 76.9 Lymphocytes (%) (Auto) 16.3 Monocytes (%) (Auto) 6.0 Eosinophils (%) (Auto) 0.5 Basophils (%) (Auto) 0.3 Neutrophils # (Auto) 7.1 Lymphocytes # (Auto) 1.5 Monocytes # (Auto) 0.6 Eosinophils # (Auto) 0.0 Basophils # (Auto) 0.0 CBC Comment DIFF FINAL Differential Comment Blood Urea Nitrogen 15 Creatinine 0.73 Random Glucose 127 Calcium Level 7.7 Sodium Level 140 Potassium Level 3.6 Chloride Level 104 Carbon Dioxide Level 27.1 Anion Gap 9 Estimat Glomerular Filtration Rate 83 Troponin I 0.03 B-Type Natriuretic Peptide 115 Result Diagram: 08/11/17 1428 08/11/17 1428 Imaging Last Impressions Lumbar Spine X-Ray 08/11/17 0000 Signed Impressions: Service Date/Time: Friday, August 11, 2017 09:04 - CONCLUSION: 1. Radiopaque markers at the L4 and L5 level, as above. Ethan Harrison MD Chest X-Ray 08/11/17 0000 Signed Impressions: Service Date/Time: Friday, August 11, 2017 14:09 - CONCLUSION: Left subclavian central line in good position without pneumothorax. Clear lungs. Moisés Ojeda Jr., MD Assessment and Plan Assessment and Plan PATIENT IS S/P L4/5 and L5/S1 TLIF with cage and pedicle screw fixation.-Pain control and anticoagulation per neurosurgery Chronic pain resume home pain medications Chronic constipation make sure she is on good plan for this Anxiety and depression resume home medications Hyperlipidemia on no home medications at this time Hypertension meds as needed Increase physical therapy and Occupational Therapy Hopefully will be eligible for discharge home once improved pain control Tobacco abuse continue on her Chantix Code Status Full code Discussed Condition With RN and patient and and case management Javon Lawson DO Aug 12, 2017 10:35
[2017-08-12] MEDS ORDERED: cloNIDine HCL 0.1 MG TAB PO PRN (10:45)
[2017-08-12] MEDS: ACETAMINOPHEN/HYDROcodone 325 MG/10 MG TAB PO PRN (15:15)
--- NOTE | 2017-08-12 16:59 | OTSOAPIP ---
RECEIVED OCCUPATIONAL THERAPY ORDERS. ATTEMPTED TO SEE PATIENT. PATIENT REPORTED SEVERE PAIN UPON ARRIVAL AND POLITELY DECLINED TREATMENT REQUESTING TO DEFER UNTIL TOMORROW. THERAPIST AGREED. WILL FOLLOW UP WITH PATIENT TOMORROW FOR EVALUATION. INTERDISCIPLINARY COMMUNICATION: REVIEWED ELECTRONIC MEDICAL RECORD Therapist: Magdalena Bal OTR/L Signature on file
[2017-08-12] MEDS ORDERED: KETOROLAC TROMETHAMINE 60 MG/2 ML (IM) VIAL IM ONE (17:00)
[2017-08-12] MEDS: MAGNESIUM HYDROXIDE SUSP 30 ML CUP PO PRN (22:01)
[2017-08-12] MEDS: ZOLPIDEM TARTRATE 5 MG TAB PO PRN (22:05)
[2017-08-12] MEDS: LORazepam 1 MG TAB PO PRN (22:05)
[2017-08-13] VITALS (7 sets, daily range): BP systolic 115–154; BP diastolic 60–73; PULSE 82–105; RESP 17–19; TEMP 98.4–100.3; O2SAT 92–99
[2017-08-13] MEDS: HYDROmorphone HCL PCA 6 MG/30 ML IV SCH ×5 (04:01→21:28)
[2017-08-13] MEDS: MORPHINE SULFATE 30 MG CONTROLLED RELEASE TAB PO SCH ×2 (04:03→17:43)
[2017-08-13] MEDS: ACETAMINOPHEN/HYDROcodone 325 MG/10 MG TAB PO PRN ×4 (06:20→20:11)
[2017-08-13] MEDS: PCA - TOTAL MG DILAUDID DELIVERED PER SHIFT OTHER SCH ×3 (06:30→20:14)
--- NOTE | 2017-08-13 08:34 | HHI.NSPN ---
(Riky Leal) History Chief Complaint: Incisional back pain. (Riky Leal) Interval History 08/12/17: Pt s/p L4/5 and l5/S1 TLIF with cage and pedicle screw fixation. She complains of incisional and back pain but improved since sitting up in chair. She was able to ambulate short distance today to RN station. She state her leg was sore but no radiculopathy in LEs. 08/13/17: Pt awake. Complains of low back pain radiating into the right hip and anterior thighs to knees. She is using the ACID MIXER and doesn't feel she can come off it yet given her pain level. (Riky Leal) Review of Systems General: Negative for: fever, chills, insomnia Respiratory: Negative for: shortness of breath, cough, sputum Cardiovascular: Negative for: chest pain Gastrointestinal: Negative for: nausea, vomitting, diarrhea, constipation ( Riky Leal) Exam Results Vital Signs Date Time Temp Pulse Resp B/P (MAP) Pulse Ox O2 Delivery O2 Flow Rate FiO2 08/13/17 07:50 99.1 91 18 154/73 (100) 98 08/11/17 15:00 Nasal Cannula 3 Intake and Output 08/13/17 08/13/17 08/14/17 08:00 16:00 00:00 Intake Total 560 ml Output Total 2100 ml Balance -1540 ml (Riky Leal) Physical Examination General: Pt awake and alert. Laying in bed in NAD. Resp: CTA bilaterally Heart: NSR no murmurs Abd: Soft positive bs Skin: No cyanosis or erythema. Bandage changed by RN this morning. Muscle: Moves LEs with good strength some limitation secondary to pain. Neuro: Pt awake and alert. Sitting up in chair. Follows commands well. Speech clear and appropriate. Sensation grossly intact. (Riky Leal) Lab, Micro, Other Results Last Impressions Lumbar Spine X-Ray 08/11/17 0000 Signed Impressions: Service Date/Time: Friday, August 11, 2017 09:04 - CONCLUSION: 1. Radiopaque markers at the L4 and L5 level, as above. Ethan Harrison MD Chest X-Ray 08/11/17 0000 Signed Impressions: Service Date/Time: Friday, August 11, 2017 14:09 - CONCLUSION: Left subclavian central line in good position without pneumothorax. Clear lungs. Moisés Ojeda Jr., MD (Riky Leal) Medical Decision Making Impression and Plan A: 57 y/o FM s/p L4/L5 and L5/S1 TLIF with cage and pedicle screw fixation. P: Continue to monitor Continue with pain control Rehab efforts. D/C Galvan today. Add Neurontin 300mg daily. (Riky Leal) Attending Statement The exam, history, and the medical decision-making described in the above note were completed with the assistance of the mid-level provider. I reviewed and agree with the findings presented. I attest that I had a [id number] encounter with the patient on the same day, and personally performed and documented my assessment and findings in the medical record. Will discontinue ACID MIXER tomorrow morning and plan rehab placement on Thursday. Discussed with patient and who are in agreement. (Jerardo Honeycutt MD) Riky Leal Aug 13, 2017 08:34 Jerardo Honeycutt MD Aug 13, 2017 17:18
[2017-08-13] MEDS: ESTRADIOL 1 MG TAB PO SCH (09:02)
[2017-08-13] MEDS: METHOCARBAMOL 500 MG TAB PO SCH ×3 (09:02→17:43)
[2017-08-13] MEDS: ESCITALOPRAM OXALATE 20 MG TAB PO SCH (09:02)
[2017-08-13] MEDS: PANTOPRAZOLE SOD 40 MG DELAYED RELEASE TAB PO SCH (09:02)
[2017-08-13] MEDS: DEXTROAMPHETAMINE/AMPHETAMINE 30 MG TAB PO SCH ×2 (09:03→20:10)
[2017-08-13] MEDS: DOCUSATE SODIUM 50 MG/SENNA 8.6 MG TAB PO SCH ×2 (09:03→20:11)
[2017-08-13] MEDS: LISINOPRIL 5 MG TAB PO SCH (09:03)
[2017-08-13] MEDS: MULTIVITAMIN TAB PO SCH (09:03)
[2017-08-13] MEDS: VARENICLINE 1 MG TAB PO SCH ×2 (09:03→17:42)
[2017-08-13] MEDS: GABAPENTIN 300 MG CAP PO SCH (09:11)
--- NOTE | 2017-08-13 09:53 | HHI.PR ---
Subjective Remarks F/U back surgery. Pain better 09/27. No BM dw RN, discontinue Galvan catheter and consider stopping Dilaudid FINANCIAL REPORT SERVICE SALES AGENT Objective Vitals Vital Signs Date Time Temp Pulse Resp B/P (MAP) Pulse Ox O2 Delivery O2 Flow Rate FiO2 08/13/17 07:50 99.1 91 18 154/73 (100) 98 08/13/17 06:58 18 08/13/17 06:30 17 08/13/17 06:00 99.9 92 18 139/65 (89) 98 08/13/17 04:01 17 08/13/17 00:00 82 08/13/17 00:00 99.4 91 18 127/60 (82) 98 08/12/17 23:53 17 08/12/17 22:09 17 08/12/17 20:18 99.6 87 18 114/57 (76) 100 08/12/17 20:00 94 08/12/17 18:56 17 08/12/17 18:14 16 08/12/17 18:14 16 08/12/17 16:18 18 08/12/17 16:12 100.1 98 18 117/66 (83) 94 08/12/17 16:01 18 08/12/17 15:19 17 08/12/17 14:00 17 08/12/17 12:43 17 08/12/17 11:33 99.8 107 17 114/62 (79) 99 I/O 08/12/17 08/12/17 08/12/17 08/13/17 08/13/17 08/13/17 06:59 14:59 22:59 06:59 14:59 22:59 Intake Total 720 ml 1100 ml 560 ml Output Total 1800 ml 1000 ml 2100 ml Balance -1080 ml 100 ml -1540 ml Intake Oral 720 ml 1100 ml 560 ml Output Urine Total 1800 ml 1000 ml 2100 ml # Bowel Movements 0 0 Result Diagram: 08/11/17 1428 08/11/17 1428 Imaging Last Impressions Lumbar Spine X-Ray 08/11/17 0000 Signed Impressions: Service Date/Time: Friday, August 11, 2017 09:04 - CONCLUSION: 1. Radiopaque markers at the L4 and L5 level, as above. Ethan Harrison MD Chest X-Ray 08/11/17 0000 Signed Impressions: Service Date/Time: Friday, August 11, 2017 14:09 - CONCLUSION: Left subclavian central line in good position without pneumothorax. Clear lungs. Moisés Ojeda Jr., MD Objective Remarks GENERAL: This is a well-nourished, well-developed patient, in no apparent distress. SKIN: No rashes, ecchymoses or lesions. Cool and dry. CARDIOVASCULAR: Regular rate and rhythm without murmurs, gallops, or rubs. S1- S2 no S3 or S4 RESPIRATORY: Clear to auscultation. Breath sounds equal bilaterally. No wheezes , rales, or rhonchi. GASTROINTESTINAL: Abdomen soft, non-tender, nondistended. No guarding. MUSCULOSKELETAL: Extremities without clubbing, cyanosis, or edema. No joint tenderness, effusion, or edema noted. No calf tenderness. Negative Homans sign bilaterally. NEUROLOGICAL: Awake and alert. Cranial nerves II through XII intact. Motor and sensory grossly within normal limits. Five out of 5 muscle strength in all muscle groups. Normal speech. Has back brace in place Insight and judgment is good Mood behaviors appropriate A/P Assessment and Plan S/P L4/5 and L5/S1 TLIF with cage and pedicle screw fixation. Improving pain dc FINANCIAL REPORT SERVICE SALES AGENT ct pain mgt counselled re narcotics pt advised she is on narcotics consider weaning. Continue physical therapy, wound care and DVT prophylaxis per neurosurgery Chronic constipation make sure she is on good plan for this. Discussed with nursing to give as needed medication Anxiety and depression. Stable continue Lexapro Hyperlipidemia. Stable Hypertension. Stable continue lisinopril Tobacco abuse continue on her Chantix Fever likely from atelectasis. OOB and encourage incentive spirometry Anemia likely from acute blood loss from surgery. Monitor Hyperglycemia. Check A1c Discharge Planning Discharge when cleared by neurosurgery Mike De Paz MD Aug 13, 2017 09:53
[2017-08-13] MEDS ORDERED: HYDR-3366 PO (12:31)
[2017-08-13] MEDS: LACTULOSE SYRUP 20 GM/30 ML CUP PO PRN (12:48)
[2017-08-13] MEDS: MAGNESIUM HYDROXIDE SUSP 30 ML CUP PO PRN ×2 (12:48→20:10)
[2017-08-13] MEDS: SODIUM CHLORIDE 0.9% FLUSH 10 ML FLUSH IV FLUSH SCH ×2 (12:51→20:10)
[2017-08-13] MEDS: POLYETHYLENE GLYCOL 17 GM PKG PO SCH (12:55)
[2017-08-13 12:59] LABS: AUTOMATED NEUTROPHIL # 5.9 TH/MM3 (1.8-7.7); BASOPHIL % 0.4 % (0.0-2.0); EOSINOPHIL # 0.2 TH/MM3 (0-0.4); HEMATOCRIT 28.5 % (35.0-46.0); HEMOGLOBIN 9.7 GM/DL (11.6-15.3); LYMPH % 19.4 % (9.0-44.0); LYMPHOCYTE # 1.7 TH/MM3 (1.0-4.8); MEAN CELL VOLUME 94.8 FL (80.0-100.0); MEAN CORPUSCULAR HEMOGLOBIN 32.4 PG (27.0-34.0); MEAN CORPUSCULAR HGB CONC 34.1 % (32.0-36.0); MEAN PLATELET VOLUME 7.8 FL (7.0-11.0); MONO % 9.7 % (0.0-8.0); MONOCYTE # 0.8 TH/MM3 (0-0.9); NEUT % 68.5 % (16.0-70.0); PLATELET COUNT 212 TH/MM3 (150-450); RED BLOOD COUNT 3.01 MIL/MM3 (4.00-5.30); RED CELL DISTRIBUTION WIDTH 12.5 % (11.6-17.2); WHITE BLOOD COUNT 8.5 TH/MM3 (4.0-11.0)
[2017-08-13] MEDS ORDERED: MAGNESIUM CITRATE SOLN 300 ML BTL PO ONE (13:00)
[2017-08-13 13:23] LABS: ALBUMIN 2.5 GM/DL (3.4-5.0); ALT (GPT) 25 U/L (10-53); AST (GOT) 41 U/L (15-37); BICARBONATE 26.7 MEQ/L (21.0-32.0); BLOOD UREA NITROGEN 6 MG/DL (7-18); CHLORIDE 108 MEQ/L (98-107); CREATININE 0.64 MG/DL (0.50-1.00); GLOMERULAR FILTRATION RATE 96 ML/MIN (>89); GLUCOSE,RANDOM 138 MG/DL (74-106); MAGNESIUM 2.3 MG/DL (1.5-2.5); PHOSPHORUS 1.5 MG/DL (2.5-4.9); SODIUM (NA) 140 MEQ/L (136-145)
[2017-08-13 13:34] LABS: ALKALINE PHOSPHATASE 59 U/L (45-117); TOTAL BILIRUBIN ADULT 0.2 MG/DL (0.2-1.0); TOTAL PROTEIN 5.9 GM/DL (6.4-8.2)
[2017-08-13] MEDS ORDERED: NEUR300C PO (16:07)
[2017-08-13] MEDS ORDERED: POTASSIUM PHOSPHATE MONOBASIC 500 MG TAB PO ONE (17:00)
[2017-08-13] MEDS: NS + KCL 20 MEQ INJ 1,000 ML IV SCH (17:52)
[2017-08-13] MEDS: POTASSIUM PHOSPHATE MONOBASIC 500 MG TAB PO SCH (20:11)
[2017-08-13 21:50] LABS: HEMOGLOBIN A1C 5.7 % (4.3-6.0)
[2017-08-13] MEDS: ZOLPIDEM TARTRATE 5 MG TAB PO PRN (21:56)
[2017-08-13] MEDS: LORazepam 1 MG TAB PO PRN (21:56)
[2017-08-14] MEDS: HYDROmorphone HCL PCA 6 MG/30 ML IV SCH ×2 (00:57→05:30)
[2017-08-14] MEDS: ACETAMINOPHEN/HYDROcodone 325 MG/10 MG TAB PO PRN ×5 (01:01→22:40)
[2017-08-14 03:47] VITALS: BP 142/71; PULSE 93; RESP 18; TEMP 99.2; O2SAT 96
[2017-08-14] MEDS: MORPHINE SULFATE 30 MG CONTROLLED RELEASE TAB PO SCH ×2 (04:02→17:00)
[2017-08-14] MEDS: PCA - TOTAL MG DILAUDID DELIVERED PER SHIFT OTHER SCH (05:31)
[2017-08-14 06:16] LABS: AUTOMATED NEUTROPHIL # 4.6 TH/MM3 (1.8-7.7); BASOPHIL % 0.6 % (0.0-2.0); EOSINOPHIL # 0.3 TH/MM3 (0-0.4); HEMATOCRIT 27.3 % (35.0-46.0); HEMOGLOBIN 9.4 GM/DL (11.6-15.3); LYMPH % 27.8 % (9.0-44.0); LYMPHOCYTE # 2.1 TH/MM3 (1.0-4.8); MEAN CELL VOLUME 94.6 FL (80.0-100.0); MEAN CORPUSCULAR HEMOGLOBIN 32.6 PG (27.0-34.0); MEAN CORPUSCULAR HGB CONC 34.5 % (32.0-36.0); MEAN PLATELET VOLUME 7.9 FL (7.0-11.0); MONO % 7.7 % (0.0-8.0); MONOCYTE # 0.6 TH/MM3 (0-0.9); NEUT % 59.9 % (16.0-70.0); PLATELET COUNT 214 TH/MM3 (150-450); RED BLOOD COUNT 2.88 MIL/MM3 (4.00-5.30); RED CELL DISTRIBUTION WIDTH 12.5 % (11.6-17.2); WHITE BLOOD COUNT 7.7 TH/MM3 (4.0-11.0)
[2017-08-14 06:39] LABS: BICARBONATE 27.3 MEQ/L (21.0-32.0); CALCIUM 7.8 MG/DL (8.5-10.1); CREATININE 0.5 MG/DL (0.50-1.00); MAGNESIUM 2.5 MG/DL (1.5-2.5); PHOSPHORUS 1.8 MG/DL (2.5-4.9)
[2017-08-14] MEDS: NS + KCL 20 MEQ INJ 1,000 ML IV SCH (07:05)
[2017-08-14 08:00] VITALS: BP 159/74; PULSE 94; RESP 16; TEMP 97.6; O2SAT 100
[2017-08-14] MEDS ORDERED: HYDROmorphone HCL PF 1 MG/ML VIAL IV PUSH PRN (08:00)
[2017-08-14] MEDS: POLYETHYLENE GLYCOL 17 GM PKG PO SCH (08:43)
[2017-08-14] MEDS: ESCITALOPRAM OXALATE 20 MG TAB PO SCH (08:43)
[2017-08-14] MEDS: GABAPENTIN 300 MG CAP PO SCH (08:44)
[2017-08-14] MEDS: MULTIVITAMIN TAB PO SCH (08:44)
[2017-08-14] MEDS: DOCUSATE SODIUM 50 MG/SENNA 8.6 MG TAB PO SCH ×2 (08:44→20:42)
[2017-08-14] MEDS: ESTRADIOL 1 MG TAB PO SCH (08:44)
[2017-08-14] MEDS: LISINOPRIL 5 MG TAB PO SCH (08:44)
[2017-08-14] MEDS: VARENICLINE 1 MG TAB PO SCH ×2 (08:44→18:03)
[2017-08-14] MEDS: METHOCARBAMOL 500 MG TAB PO SCH ×3 (08:44→18:04)
[2017-08-14] MEDS: DEXTROAMPHETAMINE/AMPHETAMINE 30 MG TAB PO SCH ×3 (08:44→20:55)
[2017-08-14] MEDS: POTASSIUM PHOSPHATE MONOBASIC 500 MG TAB PO SCH ×2 (08:55→20:43)
[2017-08-14] MEDS: SODIUM CHLORIDE 0.9% FLUSH 10 ML FLUSH IV FLUSH SCH ×2 (08:59→20:43)
--- NOTE | 2017-08-14 10:06 | HHI.PR ---
Subjective Remarks Follow-up back surgery. She is getting better out of bed to chair pain improved to 5 out of 10. Still no bowel movement. Patient wants to discontinue fentanyl patch dw PT Objective Vitals Vital Signs Date Time Temp Pulse Resp B/P (MAP) Pulse Ox O2 Delivery O2 Flow Rate FiO2 08/14/17 08:00 97.6 94 16 159/74 (102) 100 08/14/17 05:31 18 08/14/17 05:30 17 08/14/17 03:47 99.2 93 18 142/71 (94) 96 08/14/17 00:57 17 08/13/17 23:42 98.4 92 18 139/66 (90) 92 08/13/17 20:14 17 08/13/17 20:00 99.5 95 18 134/62 (86) 97 08/13/17 17:50 15 08/13/17 16:06 99.3 101 18 115/61 (79) 99 08/13/17 14:00 15 08/13/17 12:06 98.4 98 17 123/68 (86) 98 08/13/17 12:00 15 I/O 08/13/17 08/13/17 08/13/17 08/14/17 08/14/17 08/14/17 07:00 15:00 23:00 07:00 15:00 23:00 Intake Total 560 ml 3437 ml 480 ml Output Total 2100 ml 800 ml Balance -1540 ml 2637 ml 480 ml Intake Oral 560 ml 1500 ml 480 ml IV Total 1937 ml Output Urine Total 2100 ml 800 ml Bladder Scan Volume Amount 433 ml 433 ml # Voids 0 # Bowel Movements 0 0 0 Result Diagram: 08/14/17 0505 08/14/17 0505 Imaging Last Impressions Lumbar Spine X-Ray 08/11/17 0000 Signed Impressions: Service Date/Time: Friday, August 11, 2017 09:04 - CONCLUSION: 1. Radiopaque markers at the L4 and L5 level, as above. Ethan Harrison MD Chest X-Ray 08/11/17 0000 Signed Impressions: Service Date/Time: Friday, August 11, 2017 14:09 - CONCLUSION: Left subclavian central line in good position without pneumothorax. Clear lungs. Moisés Ojeda Jr., MD Objective Remarks GENERAL: This is a well-nourished, well-developed patient, in no apparent distress. SKIN: No rashes, ecchymoses or lesions. Cool and dry. CARDIOVASCULAR: Regular rate and rhythm without murmurs, gallops, or rubs. S1- S2 no S3 or S4 RESPIRATORY: Clear to auscultation. Breath sounds equal bilaterally. No wheezes , rales, or rhonchi. GASTROINTESTINAL: Abdomen soft, non-tender, nondistended. No guarding. MUSCULOSKELETAL: Extremities without clubbing, cyanosis, or edema. No joint tenderness, effusion, or edema noted. No calf tenderness. Negative Homans sign bilaterally. NEUROLOGICAL: Awake and alert. Cranial nerves II through XII intact. Motor and sensory grossly within normal limits. Five out of 5 muscle strength in all muscle groups. Normal speech. Has back brace in place Insight and judgment is good Mood behaviors appropriate A/P Assessment and Plan S/P L4/5 and L5/S1 TLIF with cage and pedicle screw fixation. Improving pain dc fentanyl patch s/p SUPERVISOR DOPING ct pain mgt counselled re narcotics pt advised she is on multiple narcotics consider weaning. Continue physical therapy, wound care and DVT prophylaxis per neurosurgery Chronic constipation. Mag citrate1. Discussed with nursing to give as needed medication Anxiety and depression. Stable continue Lexapro Hyperlipidemia. Stable Hypertension. Episodes of elevated BP secondary to pain continue lisinopril. Monitor Tobacco abuse continue on her Chantix Fever likely from atelectasis. No recurrence. OOB and encourage incentive spirometry Anemia likely from acute blood loss from surgery. Monitor Hyperglycemia. A1c 5.7 Discharge Planning Stable for discharge from medical standpoint Mike De Paz MD Aug 14, 2017 10:06
[2017-08-14] MEDS ORDERED: MAGNESIUM CITRATE SOLN 300 ML BTL PO ONE (10:15)
[2017-08-14] MEDS ORDERED: HYDROmorphone HCL PF 0.5 MG/0.5 ML SYRINGE IV PUSH PRN (11:00)
[2017-08-14 12:00] VITALS: BP 126/62; PULSE 89; RESP 16; TEMP 98.2; O2SAT 100
--- NOTE | 2017-08-14 12:48 | HHI.NSPN ---
History Chief Complaint: Incisional back pain. Interval History 08/12/17: Pt s/p L4/5 and l5/S1 TLIF with cage and pedicle screw fixation. She complains of incisional and back pain but improved since sitting up in chair. She was able to ambulate short distance today to RN station. She state her leg was sore but no radiculopathy in LEs. 08/13/17: Pt awake. Complains of low back pain radiating into the right hip and anterior thighs to knees. She is using the GASTROENTEROLOGY PHYSICIAN and doesn't feel she can come off it yet given her pain level. 08/14/17: Pt awake and alert. Sitting up on edge of bed. Complains of back spasms that come on quick and don't last long. She has pain in bilateral anterior thighs and posterior right leg. She states she wants to stop the Duragesic patch. Review of Systems General: Negative for: fever, chills, insomnia Respiratory: Negative for: shortness of breath, cough, sputum Cardiovascular: Negative for: chest pain Gastrointestinal: Negative for: nausea, vomitting, diarrhea, constipation Exam Results Vital Signs Date Time Temp Pulse Resp B/P (MAP) Pulse Ox O2 Delivery O2 Flow Rate FiO2 08/14/17 08:00 97.6 94 16 159/74 (102) 100 08/11/17 15:00 Nasal Cannula 3 Intake and Output 08/14/17 08/14/17 08/15/17 08:00 16:00 00:00 Intake Total 480 ml Balance 480 ml Physical Examination General: Pt awake and alert. Laying in bed in NAD. Resp: CTA bilaterally Heart: NSR no murmurs Abd: Soft positive bs Skin: No cyanosis or erythema. Bandage changed by RN this morning. Incision visualized and is without signs of infection. Steri strips intact. Muscle: Moves LEs with good strength some limitation secondary to pain. Neuro: Pt awake and alert. Sitting up on edge of bed. Follows commands well. Speech clear and appropriate. Sensation grossly intact. Lab, Micro, Other Results Last Impressions Lumbar Spine X-Ray 08/11/17 0000 Signed Impressions: Service Date/Time: Friday, August 11, 2017 09:04 - CONCLUSION: 1. Radiopaque markers at the L4 and L5 level, as above. Ethan Harrison MD Chest X-Ray 08/11/17 0000 Signed Impressions: Service Date/Time: Friday, August 11, 2017 14:09 - CONCLUSION: Left subclavian central line in good position without pneumothorax. Clear lungs. Moisés Ojeda Jr., MD Laboratory Tests Test 08/14/17 05:05 White Blood Count 7.7 TH/MM3 Red Blood Count 2.88 MIL/MM3 Hemoglobin 9.4 GM/DL Hematocrit 27.3 % Mean Corpuscular Volume 94.6 FL Mean Corpuscular Hemoglobin 32.6 PG Mean Corpuscular Hemoglobin Concent 34.5 % Red Cell Distribution Width 12.5 % Platelet Count 214 TH/MM3 Mean Platelet Volume 7.9 FL Neutrophils (%) (Auto) 59.9 % Lymphocytes (%) (Auto) 27.8 % Monocytes (%) (Auto) 7.7 % Eosinophils (%) (Auto) 4.0 % Basophils (%) (Auto) 0.6 % Neutrophils # (Auto) 4.6 TH/MM3 Lymphocytes # (Auto) 2.1 TH/MM3 Monocytes # (Auto) 0.6 TH/MM3 Eosinophils # (Auto) 0.3 TH/MM3 Basophils # (Auto) 0.0 TH/MM3 CBC Comment DIFF FINAL Differential Comment Blood Urea Nitrogen 6 MG/DL Creatinine 0.50 MG/DL Random Glucose 98 MG/DL Calcium Level 7.8 MG/DL Phosphorus Level 1.8 MG/DL Magnesium Level 2.5 MG/DL Sodium Level 142 MEQ/L Potassium Level 3.9 MEQ/L Chloride Level 107 MEQ/L Carbon Dioxide Level 27.3 MEQ/L Anion Gap 8 MEQ/L Estimat Glomerular Filtration Rate 128 ML/MIN Medical Decision Making Impression and Plan A: 57 y/o FM s/p L4/L5 and L5/S1 TLIF with cage and pedicle screw fixation. P: Continue to monitor Continue with pain control Rehab efforts. Rehab placement tomorrow. Riky Leal Aug 14, 2017 12:48 pm
[2017-08-14] MEDS: MAGNESIUM HYDROXIDE SUSP 30 ML CUP PO PRN (13:35)
[2017-08-14] MEDS: LACTULOSE SYRUP 20 GM/30 ML CUP PO PRN (13:35)
[2017-08-14 18:23] VITALS: BP 134/70; PULSE 90; RESP 16; TEMP 98.1; O2SAT 100
[2017-08-14 19:48] VITALS: BP 123/58; PULSE 84; RESP 18; TEMP 98.8; O2SAT 99
[2017-08-14] MEDS: ZOLPIDEM TARTRATE 5 MG TAB PO PRN (20:53)
[2017-08-14 22:35] VITALS: BP 161/77; PULSE 93; RESP 18; TEMP 99.1; O2SAT 99
[2017-08-15] MEDS: ZOLPIDEM TARTRATE 5 MG TAB PO PRN (01:07)
[2017-08-15 03:05] VITALS: BP 130/84; PULSE 79; RESP 18; TEMP 98.9; O2SAT 98
[2017-08-15] MEDS: ACETAMINOPHEN/HYDROcodone 325 MG/10 MG TAB PO PRN ×5 (03:18→21:16)
[2017-08-15] MEDS: LORazepam 1 MG TAB PO PRN ×2 (03:18→21:22)
[2017-08-15] MEDS: MORPHINE SULFATE 30 MG CONTROLLED RELEASE TAB PO SCH ×2 (05:00→09:01)
[2017-08-15 06:38] VITALS: BP 138/63; PULSE 85; RESP 18; TEMP 99.2; O2SAT 96
[2017-08-15 06:40] LABS: BICARBONATE 24.4 MEQ/L (21.0-32.0); CALCIUM 8.4 MG/DL (8.5-10.1); CREATININE 0.51 MG/DL (0.50-1.00); MAGNESIUM 2.3 MG/DL (1.5-2.5); PHOSPHORUS 2.7 MG/DL (2.5-4.9)
[2017-08-15] MEDS: METHOCARBAMOL 500 MG TAB PO SCH ×3 (08:32→18:00)
[2017-08-15] MEDS: ESCITALOPRAM OXALATE 20 MG TAB PO SCH (08:32)
[2017-08-15] MEDS: GABAPENTIN 300 MG CAP PO SCH (08:32)
[2017-08-15] MEDS: ESTRADIOL 1 MG TAB PO SCH (08:33)
[2017-08-15] MEDS: VARENICLINE 1 MG TAB PO SCH ×2 (08:34→18:00)
[2017-08-15] MEDS: MULTIVITAMIN TAB PO SCH (08:34)
[2017-08-15] MEDS: DOCUSATE SODIUM 50 MG/SENNA 8.6 MG TAB PO SCH ×2 (08:34→21:16)
[2017-08-15] MEDS: LISINOPRIL 5 MG TAB PO SCH (08:34)
[2017-08-15] MEDS: SODIUM CHLORIDE 0.9% FLUSH 10 ML FLUSH IV FLUSH SCH ×2 (08:36→21:15)
[2017-08-15] MEDS: POLYETHYLENE GLYCOL 17 GM PKG PO SCH (08:36)
[2017-08-15] MEDS: DEXTROAMPHETAMINE/AMPHETAMINE 30 MG TAB PO SCH ×2 (08:37→21:16)
[2017-08-15] MEDS: POTASSIUM PHOSPHATE MONOBASIC 500 MG TAB PO SCH ×2 (09:00→21:15)
--- NOTE | 2017-08-15 09:22 | HHI.PR ---
Subjective Remarks Follow-up constipation and back pain. Having loose stools after magnesium citrate. Denies nausea vomiting and abdominal pain. Feels she is withdrawing after missing 2 doses of Oramorph. Discussed with nursing Objective Vitals Vital Signs Date Time Temp Pulse Resp B/P (MAP) Pulse Ox O2 Delivery O2 Flow Rate FiO2 08/15/17 06:38 99.2 85 18 138/63 (88) 96 08/15/17 03:05 98.9 79 18 130/84 (99) 98 08/14/17 22:35 99.1 93 18 161/77 (105) 99 08/14/17 19:48 98.8 84 18 123/58 (79) 99 08/14/17 18:23 98.1 90 16 134/70 (91) 100 08/14/17 12:00 98.2 89 16 126/62 (83) 100 I/O 08/14/17 08/14/17 08/14/17 08/15/17 08/15/17 08/15/17 07:00 15:00 23:00 07:00 15:00 23:00 Intake Total 480 ml 1000 ml 600 ml 480 ml Balance 480 ml 1000 ml 600 ml 480 ml Intake Oral 480 ml 600 ml 480 ml IV Total 1000 ml Bladder Scan Volume Amount 433 ml # Voids 0 2 3 # Bowel Movements 0 2 5 Result Diagram: 08/14/17 0505 08/15/17 0408 Imaging Last Impressions Lumbar Spine X-Ray 08/11/17 0000 Signed Impressions: Service Date/Time: Friday, August 11, 2017 09:04 - CONCLUSION: 1. Radiopaque markers at the L4 and L5 level, as above. Ethan Harrison MD Chest X-Ray 08/11/17 0000 Signed Impressions: Service Date/Time: Friday, August 11, 2017 14:09 - CONCLUSION: Left subclavian central line in good position without pneumothorax. Clear lungs. Moisés Ojeda Jr., MD Objective Remarks GENERAL: This is a well-nourished, well-developed patient, in no apparent distress. SKIN: No rashes, ecchymoses or lesions. Cool and dry. CARDIOVASCULAR: Regular rate and rhythm without murmurs, gallops, or rubs. S1- S2 no S3 or S4 RESPIRATORY: Clear to auscultation. Breath sounds equal bilaterally. No wheezes , rales, or rhonchi. GASTROINTESTINAL: Abdomen soft, non-tender, nondistended. No guarding. MUSCULOSKELETAL: Extremities without clubbing, cyanosis, or edema. No joint tenderness, effusion, or edema noted. No calf tenderness. Negative Homans sign bilaterally. NEUROLOGICAL: Awake and alert. Cranial nerves II through XII intact. Motor and sensory grossly within normal limits. Five out of 5 muscle strength in all muscle groups. Normal speech. Has back brace in place Insight and judgment is good Mood behaviors appropriate A/P Assessment and Plan S/P L4/5 and L5/S1 TLIF with cage and pedicle screw fixation. Improving pain dc fentanyl patch s/p AIRLINE CAPTAIN ct pain mgt counselled re narcotics pt advised she is on multiple narcotics consider weaning. Continue physical therapy, wound care and DVT prophylaxis per neurosurgery Chronic constipation. Mag citrate1. Resolved discussed with nursing to give as needed medication Anxiety and depression. Stable continue Lexapro Hyperlipidemia. Stable Hypertension. Episodes of elevated BP secondary to pain continue lisinopril. Monitor Tobacco abuse continue on her Chantix Fever likely from atelectasis. No recurrence. OOB and encourage incentive spirometry Anemia likely from acute blood loss from surgery. Monitor Hyperglycemia. A1c 5.7 Discharge Planning Stable for discharge from medical standpoint Mike De Paz MD Aug 15, 2017 09:22
[2017-08-15 12:00] VITALS: BP 173/80; PULSE 104; RESP 20; TEMP 99.2; O2SAT 100
[2017-08-15 16:00] VITALS: BP 143/67; PULSE 79; RESP 18; TEMP 98.5; O2SAT 100
[2017-08-15 20:03] VITALS: BP 123/66; PULSE 105; RESP 18; TEMP 99.3; O2SAT 100
[2017-08-15 23:25] VITALS: BP 160/82; PULSE 88; RESP 18; TEMP 99.4; O2SAT 100
[2017-08-16] MEDS: ACETAMINOPHEN/HYDROcodone 325 MG/10 MG TAB PO PRN ×6 (02:30→23:40)
[2017-08-16 04:42] VITALS: BP 142/63; PULSE 83; RESP 18; TEMP 98.6; O2SAT 100
[2017-08-16] MEDS: MORPHINE SULFATE 30 MG CONTROLLED RELEASE TAB PO SCH ×2 (05:22→17:31)
[2017-08-16 08:00] VITALS: BP 144/66; PULSE 85; RESP 17; TEMP 98.7; O2SAT 100
[2017-08-16] MEDS: POLYETHYLENE GLYCOL 17 GM PKG PO SCH (09:00)
--- NOTE | 2017-08-16 09:09 | HHI.PR ---
Subjective Remarks Follow-up constipation and pain management. She is stooling. Pain under control. Discussed with nursing, medically stable for discharge Objective Vitals Vital Signs Date Time Temp Pulse Resp B/P (MAP) Pulse Ox O2 Delivery O2 Flow Rate FiO2 08/16/17 08:00 98.7 85 17 144/66 (92) 100 08/16/17 04:42 98.6 83 18 142/63 (89) 100 08/15/17 23:25 99.4 88 18 160/82 (108) 100 08/15/17 20:03 99.3 105 18 123/66 (85) 100 08/15/17 16:00 98.5 79 18 143/67 (92) 100 08/15/17 13:42 20 08/15/17 12:00 99.2 104 20 173/80 (111) 100 08/15/17 10:01 20 I/O 08/15/17 08/15/17 08/15/17 08/16/17 08/16/17 08/16/17 07:00 15:00 23:00 07:00 15:00 23:00 Intake Total 480 ml 240 ml Balance 480 ml 240 ml Intake Oral 480 ml 240 ml # Voids 3 4 3 # Bowel Movements 5 2 Result Diagram: 08/14/17 0505 08/15/17 0408 Imaging Last Impressions Lumbar Spine X-Ray 08/11/17 0000 Signed Impressions: Service Date/Time: Friday, August 11, 2017 09:04 - CONCLUSION: 1. Radiopaque markers at the L4 and L5 level, as above. Ethan Harrison MD Chest X-Ray 08/11/17 0000 Signed Impressions: Service Date/Time: Friday, August 11, 2017 14:09 - CONCLUSION: Left subclavian central line in good position without pneumothorax. Clear lungs. Moisés Ojeda Jr., MD Objective Remarks GENERAL: This is a well-nourished, well-developed patient, in no apparent distress. SKIN: No rashes, ecchymoses or lesions. Cool and dry. CARDIOVASCULAR: Regular rate and rhythm without murmurs, gallops, or rubs. S1- S2 no S3 or S4 RESPIRATORY: Clear to auscultation. Breath sounds equal bilaterally. No wheezes , rales, or rhonchi. GASTROINTESTINAL: Abdomen soft, non-tender, nondistended. No guarding. MUSCULOSKELETAL: Extremities without clubbing, cyanosis, or edema. No joint tenderness, effusion, or edema noted. No calf tenderness. Negative Homans sign bilaterally. NEUROLOGICAL: Awake and alert. Cranial nerves II through XII intact. Motor and sensory grossly within normal limits. Five out of 5 muscle strength in all muscle groups. Normal speech. A/P Assessment and Plan S/P L4/5 and L5/S1 TLIF with cage and pedicle screw fixation. Improving pain dc fentanyl patch s/p SHOE SALESPERSON ct pain mgt counselled re narcotics pt advised she is on multiple narcotics consider weaning. Continue physical therapy, wound care and DVT prophylaxis per neurosurgery Chronic constipation. This is resolved patient has been refusing bowel regimen Anxiety and depression. Stable continue Lexapro Hyperlipidemia. Stable Hypertension. Episodes of elevated BP secondary to pain continue lisinopril. Monitor Tobacco abuse continue on her Chantix Fever likely from atelectasis. No recurrence. OOB and encourage incentive spirometry Anemia likely from acute blood loss from surgery. Monitor Hyperglycemia. A1c 5.7 Discharge Planning Stable for discharge from medical standpoint. Awaiting insurance authorization for rehabilitation Mike De Paz MD Aug 16, 2017 09:09
[2017-08-16] MEDS: GABAPENTIN 300 MG CAP PO SCH (09:47)
[2017-08-16] MEDS: DEXTROAMPHETAMINE/AMPHETAMINE 30 MG TAB PO SCH ×2 (09:49→19:21)
[2017-08-16] MEDS: VARENICLINE 1 MG TAB PO SCH ×2 (09:49→17:31)
[2017-08-16] MEDS: ESCITALOPRAM OXALATE 20 MG TAB PO SCH (09:50)
[2017-08-16] MEDS: LISINOPRIL 5 MG TAB PO SCH (09:50)
[2017-08-16] MEDS: ESTRADIOL 1 MG TAB PO SCH (09:50)
[2017-08-16] MEDS: METHOCARBAMOL 500 MG TAB PO SCH ×3 (09:50→17:31)
[2017-08-16] MEDS: MULTIVITAMIN TAB PO SCH (09:51)
[2017-08-16] MEDS: DOCUSATE SODIUM 50 MG/SENNA 8.6 MG TAB PO SCH ×2 (09:51→19:21)
[2017-08-16] MEDS: SODIUM CHLORIDE 0.9% FLUSH 10 ML FLUSH IV FLUSH SCH ×2 (09:51→19:18)
[2017-08-16 12:00] VITALS: BP 127/62; PULSE 91; RESP 18; TEMP 98.9; O2SAT 100
[2017-08-16 16:00] VITALS: BP 136/60; PULSE 100; RESP 18; TEMP 98.6; O2SAT 100
[2017-08-16 19:15] VITALS: BP 117/58; PULSE 93; RESP 16; TEMP 99; O2SAT 99
[2017-08-16] MEDS: LORazepam 1 MG TAB PO PRN (20:23)
[2017-08-16 23:42] VITALS: BP 136/63; PULSE 100; RESP 17; TEMP 98.7; O2SAT 99
[2017-08-17] MEDS: ACETAMINOPHEN/HYDROcodone 325 MG/10 MG TAB PO PRN ×4 (03:51→16:46)
[2017-08-17] MEDS: LORazepam 1 MG TAB PO PRN (04:29)
[2017-08-17] MEDS: MORPHINE SULFATE 30 MG CONTROLLED RELEASE TAB PO SCH ×2 (04:29→16:47)
[2017-08-17 08:00] VITALS: BP 111/59; PULSE 97; RESP 16; TEMP 99; O2SAT 99
[2017-08-17] MEDS: LISINOPRIL 5 MG TAB PO SCH (08:32)
[2017-08-17] MEDS: MULTIVITAMIN TAB PO SCH (08:32)
[2017-08-17] MEDS: METHOCARBAMOL 500 MG TAB PO SCH ×3 (08:32→16:48)
[2017-08-17] MEDS: ESCITALOPRAM OXALATE 20 MG TAB PO SCH (08:32)
[2017-08-17] MEDS: DEXTROAMPHETAMINE/AMPHETAMINE 30 MG TAB PO SCH (08:32)
[2017-08-17] MEDS: GABAPENTIN 300 MG CAP PO SCH (08:32)
[2017-08-17] MEDS: ESTRADIOL 1 MG TAB PO SCH (08:32)
[2017-08-17] MEDS: DOCUSATE SODIUM 50 MG/SENNA 8.6 MG TAB PO SCH (08:33)
[2017-08-17] MEDS: SODIUM CHLORIDE 0.9% FLUSH 10 ML FLUSH IV FLUSH SCH (09:00)
[2017-08-17] MEDS: POLYETHYLENE GLYCOL 17 GM PKG PO SCH (09:00)
[2017-08-17] MEDS ORDERED: VARENICLINE 0.5 MG TAB PO SCH (10:00)
--- NOTE | 2017-08-17 10:43 | HHI.PR ---
Subjective Remarks Pending insurance approval. Patient has been medically clear for discharge. No new complaints from the patient today. Objective Vital Signs Date Time Temp Pulse Resp B/P (MAP) Pulse Ox O2 Delivery O2 Flow Rate FiO2 08/17/17 08:00 99.0 97 16 111/59 (76) 99 08/16/17 23:42 98.7 100 17 136/63 (87) 99 08/16/17 19:15 99.0 93 16 117/58 (77) 99 08/16/17 16:00 98.6 100 18 136/60 (85) 100 08/16/17 12:00 98.9 91 18 127/62 (83) 100 I/O 08/16/17 08/16/17 08/16/17 08/17/17 08/17/17 08/17/17 07:00 15:00 23:00 07:00 15:00 23:00 Intake Total 240 ml Balance 240 ml Intake Oral 240 ml # Voids 3 4 Result Diagram: 08/14/17 0505 08/15/17 0408 Objective Remarks GENERAL: NAD, A&Ox3 HEAD: Normocephalic. NECK: Supple, trachea midline. No lymphadenopathy. EYES: No scleral icterus. No injection or drainage. CARDIOVASCULAR: Regular rate and rhythm without murmurs, gallops, or rubs. RESPIRATORY: Breath sounds equal bilaterally. No accessory muscle use. GASTROINTESTINAL: Abdomen soft, non-tender, nondistended. MUSCULOSKELETAL: No cyanosis, or edema. SKIN: Warm and dry. NEURO: No focal neurological deficitis. A/P Assessment and Plan 57-year-old female admitted secondary to L4/5 and L5/S1 TLIF with cage and pedicle screw fixation S/P L4/5 and L5/S1 TLIF with cage and pedicle screw fixation. Continue to follow with neurosurgery Continue pain treatments as needed Continue physical therapy Continue wound care General anxiety disorder Depression history continue Lexapro Hyperlipidemia Continue present treatment Follow as an outpatient Hypertension Continue baseline treatment Follow blood pressures Adjust treatments as needed Continues lisinopril Tobacco abuse Continue Chantix Discharge Planning Stable for discharge from medical standpoint. Awaiting insurance authorization for rehabilitation Vivek Dunbar MD Aug 17, 2017 10:43
[2017-08-17 12:00] VITALS: BP 107/52; PULSE 86; RESP 16; TEMP 99.1; O2SAT 99
--- NOTE | 2017-08-17 12:22 | HHI.NSPN ---
History Chief Complaint: Incisional back pain. Interval History 08/12/17: Pt s/p L4/5 and l5/S1 TLIF with cage and pedicle screw fixation. She complains of incisional and back pain but improved since sitting up in chair. She was able to ambulate short distance today to RN station. She state her leg was sore but no radiculopathy in LEs. 08/13/17: Pt awake. Complains of low back pain radiating into the right hip and anterior thighs to knees. She is using the MUSEUM ASSISTANT and doesn't feel she can come off it yet given her pain level. 08/14/17: Pt awake and alert. Sitting up on edge of bed. Complains of back spasms that come on quick and don't last long. She has pain in bilateral anterior thighs and posterior right leg. She states she wants to stop the Duragesic patch. 08/17/17: Pt awake and alert. States incisional pain improving. She states she still feels unsteady with right leg when up oob walking. Pain at times radiates into bilateral thighs and posterior thigh also. Review of Systems General: Negative for: fever, chills, insomnia Respiratory: Negative for: shortness of breath, cough, sputum Cardiovascular: Negative for: chest pain Gastrointestinal: Negative for: nausea, vomitting, diarrhea, constipation Exam Results Vital Signs Date Time Temp Pulse Resp B/P (MAP) Pulse Ox O2 Delivery O2 Flow Rate FiO2 08/17/17 08:00 99.0 97 16 111/59 (76) 99 Physical Examination General: Pt awake and alert. Laying in bed in NAD. Resp: CTA bilaterally Heart: NSR no murmurs Abd: Soft positive bs Skin: No cyanosis or erythema. Bandage changed by RN this morning. Incision visualized and is without signs of infection. Steri strips intact. Muscle: Moves LEs with good strength. Neuro: Pt awake and alert. Follows commands well. Speech clear and appropriate. Sensation grossly intact. Lab, Micro, Other Results Last Impressions Lumbar Spine X-Ray 08/11/17 0000 Signed Impressions: Service Date/Time: Friday, August 11, 2017 09:04 - CONCLUSION: 1. Radiopaque markers at the L4 and L5 level, as above. Ethan Harrison MD Chest X-Ray 08/11/17 0000 Signed Impressions: Service Date/Time: Friday, August 11, 2017 14:09 - CONCLUSION: Left subclavian central line in good position without pneumothorax. Clear lungs. Moisés Ojeda Jr., MD Medical Decision Making Impression and Plan A: 57 y/o FM s/p L4/L5 and L5/S1 TLIF with cage and pedicle screw fixation. P: Continue to monitor Continue with pain control Rehab efforts. Rehab placement today D/C planning discussed with case management. Calling for authorization update. Riky Leal Aug 17, 2017 12:22 pm
[2017-08-17 16:00] VITALS: BP 108/68; PULSE 91; RESP 18; TEMP 98.7; O2SAT 100
[2017-08-17 17:19] VITALS: RESP 18
== END 2017-08-17 18:25 | DRG 460 ==
LOC: HSDI 06:20 → N06A 15:36
PROVIDERS: ADMIT Neurological Surgery; ATTEND Neurological Surgery
PROC: 0SB20ZZ Excision of Lumbar Vertebral Disc, Open Approach (ICD-10-PCS; 2017-08-11)
PROC: 0SG10AJ Fusion of 2 or more Lumbar Vertebral Joints with Interbody Fusion Device, Posterior Approach, Anterior Column, Open Approach (ICD-10-PCS; principal; 2017-08-11 08:47)
DX: M48.062 Spinal stenosis, lumbar region with neurogenic claudication (principal); D62 Acute posthemorrhagic anemia; I10 Essential (primary) hypertension; J98.11 Atelectasis; M51.36 Other intervertebral disc degeneration, lumbar region; F32.9 Major depressive disorder, single episode, unspecified; F41.1 Generalized anxiety disorder; K59.09 Other constipation; Z87.442 Personal history of urinary calculi; M81.0 Age-related osteoporosis without current pathological fracture; M19.90 Unspecified osteoarthritis, unspecified site; G89.29 Other chronic pain; E78.5 Hyperlipidemia, unspecified; Z72.0 Tobacco use; Z82.49 Family history of ischemic heart disease and other diseases of the circulatory system; R73.9 Hyperglycemia, unspecified; M62.830 Muscle spasm of back
CPT/HCPCS: 71045; 72020; 72100; 76000; 80048; 80053; 83036; 83735; 83880; 84100; 84439; 84443; 84484; 85025; 86850; 86900; 86901; 93005; 94150; C1713; J0131; J0690; J1170; J1885; J2250; J2270; J2370; J2405; J2710; J3010; J3370; J3480; L0484